=== PATIENT | male | born 1930 | race Caucasian/White ===

== ENCOUNTER 2016-05-02 18:33 | Emergency (ER) | payer MEDICARE ==
[~2016-05-02] VITALS: Ht 162.6 cm; Wt 69.5 kg
[~2016-05-02 18:33] MED LIST: ALBU8.5H2 INHALATION; ATOR10TA66 PO; CHOL100043 PO; DOCU-41 PO; DOXA1TAB2 PO; GABA-500 PO; IRBE300T18 PO; PANT40TA3 PO; PRED5DRO6 BOTH_EYES; SODI15DR6 OP; TIOT18CA3 IH
[2016-05-02 18:37] VITALS: BP 198/91; PULSE 100; RESP 20; O2SAT 96
--- NOTE | 2016-05-02 19:34 | DRSVH ---
PROCEDURE: CT BRAIN WITHOUT CONTRAST ([id number]) INDICATIONS: SEPULVEDA TECHNIQUE: Noncontrast 4.5 mm thick angled axial sections acquired from the foramen magnum to the vertex, with c oronal reformats. COMPARISON: [facility], MR, MR HEAD WO/W CONTRAST AND MRA HEAD AND MRA NECK WO/W CONTRA ST, 04/17/2016, 5:20 PM. [facility], CT, CT HEAD WO CONTRAST, 04/17/2016, 5:[address] [facility], CT, CT BRAIN WO CON, 11/26/2014, 2:30. FINDINGS: Image quality: Excellent. CSF spaces: Basal cisterns are patent. No extra-axial fluid collections. The ventricles are symmet una in size and shape. 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 No intracranial bleeds or masses. There is cerebral volume loss for age, with resultant ventricular and sulcal prominence. There are periventricular and deep white matter chronic small vessel ischemic changes. There is intracranial internal carotid art marivel atherosclerosis. Skull and face: Calvarium and visualized facial bones appear intact, without suspicious lesions. Sinuses: Visualized sinuses are clear. Partial opacification of right mastoids is unchanged. IMPRESSION: 1. No acute intracranial abnormalities. 2. 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 3. Cerebral volume loss and chronic microvascular ischemic changes. 4. Partial opacification of right mastoids appears unchanged. Recommend clinical correlation for mast oiditis. Dictated by: Pretty Renee M.D. on 05/02/2016 at 19:28 Approved by: Pretty Renee M.D. on 05/02/2016 at 19:31
--- NOTE | 2016-05-02 19:44 | ED.REPORT ---
HPI-General Illness Date of Service May 02, 2016 ED Provider: Ruddy Mayers MD The patient is a 85 year old male w/ a hx of CAD, COPD, HTN who presents to the ED accompanied by his due to head pressure for the past 2 weeks. He went to earlier today and was referred here due to high blood pressure. Associated symptoms include diarrhea and shallow breathing. Denies chest pain, SOB, nausea, vomiting, abdominal pain. Dr. Man is his primary care physician. Nursing Notes Stated Complaint: SENT BY AGENCY Chief Complaint: General Complaint Nursing Notes Reviewed: Yes Allergies: Coded Allergies: tetracycline (Verified Allergy, Severe, nausea, heart palpitation, 05/02/16 ) lorazepam (Verified Allergy, Unknown, 05/02/16) Scheduled Albuterol HFA (Proair HFA) 8.5 Gm Hfa.aer.ad 2 PUFFS INHALATION Q4H prn for shortness of breath Atorvastatin Calcium (Atorvastatin Calcium) 10 Mg Tablet 10 MG PO DAILY Cholecalciferol (Vitamin D3) (Vitamin D) 1,000 Unit Tablet 5,000 UNIT PO DAILY Doxazosin Mesylate (Doxazosin Mesylate) 1 Mg Tablet 1 MG PO DAILY Gabapentin (Gabapentin) 100 Mg Capsule 100 MG PO TID Irbesartan (Irbesartan) 300 Mg Tablet 300 MG PO DAILY Pantoprazole DR (Pantoprazole DR) 40 Mg Tablet.dr 40 MG PO DAILY Prednisolone Acetate (Prednisolone Acetate) 5 Ml Drops.susp 1 DRP BOTH_EYES DAILY Sodium Chloride (Aleksandr-128) 15 Ml Drops 15 ML OP BID Tiotropium [place] (Spiriva) 18 Mcg Cap.w.dev 18 MCG IH DAILY Scheduled PRN Docusate Sodium (Colace) 100 Mg Capsule 100 MG PO DAILY PRN PRN For Constipation General Time Seen by MD: 19:36 Chief Complaint Headache Hx Obtained From: Patient Arrived By: Walk-in Sudden in Onset?: Yes Onset Occurred: More than a week ago... (2 weeks) Symptom Duration: Since onset Location: : Head Radiation: : Does not radiate Severity: Current: Mild Recent Healthcare: Recent doctor visit Similar Sx Previous: Yes Past Medical History Past Medical History Notes: Dicharge diagnoses 10/28/14: 1. Sepsis syndrome 2. Pneumonia, likely community acquired with possible contribution from slight aspiration 3. Acute renal failure , resolved (likely secondary to sepsis) 4. Chronic kidney disease, stage 2 5. COPD 6. Hyponatremia secondary to volume depletion 7. Acute encephalopathy secondary to sepsis, resolved Secondary diagnoses: Hypertension CAD/PVD BPH Peripheral neuropathy Past Medical History Brain aneurysm Reports: COPD, Coronary artery disease, Hypertension Reports: Renal failure Past Surgical History Cataracts surgery BLE stents Smoking History Current Every Day Smoker Social History Alcohol Use: Denies alcohol use Drug Use: Denies drug use Other Social History: Smokeless tobacco, Good social support, Ambulatory Status Independent Review of Systems no jaw claudication Full Review of Systems Respiratory: Denies: Shortness of breath Cardiovascular: Denies: Chest pain GI: Denies: Abdominal pain, Nausea, Vomiting Neurologic: Reports: Headache Complete sys rev & neg: except as marked. 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 ambulatory with a steady gait tandum walk Vital Signs Vital Signs Date Time Temp Pulse Resp B/P Pulse Ox O2 Delivery O2 Flow Rate FiO2 05/02/16 20:50 77 15 165/78 96 Room Air 05/02/16 20:35 36.8 87 18 178/80 98 Room Air 05/02/16 18:37 36.6 100 20 198/91 96 Initial VS: Reviewed Neck: Supple, Non-tender, Full range of motion Respiratory: Breath sounds normal, Clear to auscultation, No respiratory distress Abdomen / GI: Soft, Non-tender, No guarding, No rebound, No distention Extremities: Vascular intact, Neuro intact, No swelling, No tenderness Skin: Warm, Dry, No cyanosis Psychiatric: Mood/affect normal, Behavior normal, Normal thought content General/Constitutional: Awake, Alert, No acute distress, Cooperative Head / Eyes: Normocephalic right pupil is abnormal scalp is nontender temporal artery is nontender w/out beating no tenderness to facial percussion Cardiovascular: Heart rate NL, Regular rhythm, Heart sounds NL no carotid brewery Interpretation & Diagnostics Lab Results Interpretation Test 05/02/16 19:41 05/02/16 19:50 Hold Purple Top Tube Received (Received) Hold Blue Top Tube Received (Received) Hold [place] Top Tube Received (Received) Hold [place] Top Tube Received (Received) Hold Urine Received (Received) CT Head Interpretation IMPRESSION: 1. No acute intracranial abnormalities. 2. 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 3. Cerebral volume loss and chronic microvascular ischemic changes. 4. Partial opacification of right mastoids appears unchanged. Recommend clinical correlation for mastoiditis. Dictated by: Pretty Renee M.D. on 05/02/2016 at 19:28 Approved by: Pretty Renee M.D. on 05/02/2016 at 19:31 Study: Head CT no contrast Interpretation / Wet Read by: Interpret - Radiologist Re-Eval/Medical Decision Med Decision/Clinical Course chief complaint of head pressure. pt anxious re ICH, this is not seen on CT today. BP is elevated, not to the extent I would expect acute symptoms. given nature of complaint that is not clearly associated with cardiac or infectious illness, will not pursue these further. advised them to follow up with PMD regarding BP Counseled Regarding: Diagnosis, Lab results, Need for follow-up, When/why to return to ED Discharge & Departure Primary Impression: Head ache Headache type: unspecified Headache chronicity pattern: unspecified pattern Intractability: not intractable Qualified Code: R51 - Headache Disposition: Home Discharge Condition All VS Reviewed: Yes Condition: Stable Additional Instructions: Emergency Department evaluation included interview, examination, labs, ECG, and head CT. There are no dangerous causes for your symptoms. BP is elevated but not severely so. Continue previous home medications. Your head CT is without acute findins, there is no evidence of bleeding. Follow up with your primary care physician as needed. Follow blood pressures at home, check once daily, bring this ifo to Dr Man for follow up. Return to the Emergency Department for any new or worsening symptoms. Referrals: Tia Man MD (PCP) Scribe Attestation Portion of this note were transcribed by Jackie Espinal. I, Dr. Mayers, personally performed the history, physical exam, and medical decision-making: I reviewed and confirmed the accuracy for the information in the transcribed note. Signed by: tyler Pandey, 05/02/16 2200 copies to: Tia Man MD, Donald L MD May 02, 2016 19:44 Jackie Espinal May 02, 2016 19:57
[2016-05-02 20:35] VITALS: BP 178/80; PULSE 87; RESP 18; O2SAT 98
[2016-05-02 20:50] VITALS: BP 165/78; PULSE 77; RESP 15; O2SAT 96
== END 2016-05-02 20:45 | disposition home or self-care (01) ==
LOC: SED 18:33
DX: R51 Headache (principal); R19.7 Diarrhea, unspecified; R06.89 Other abnormalities of breathing; I13.10 Hypertensive heart and chronic kidney disease without heart failure, with stage 1 through stage 4 chronic kidney disease, or unspecified chronic kidney disease; N18.2 Chronic kidney disease, stage 2 (mild); I25.10 Atherosclerotic heart disease of native coronary artery without angina pectoris; J44.9 Chronic obstructive pulmonary disease, unspecified; F17.200 Nicotine dependence, unspecified, uncomplicated; Z88.1 Allergy status to other antibiotic agents; Z88.5 Allergy status to narcotic agent; Z88.8 Allergy status to other drugs, medicaments and biological substances

== ENCOUNTER 2016-11-12 18:21 | Emergency (ER) | payer MEDICARE ==
[~2016-11-12] VITALS: Ht 162.6 cm; Wt 66.8 kg
[2016-11-12 18:26] VITALS: BP 161/55; PULSE 82; RESP 16; O2SAT 94
--- NOTE | 2016-11-12 19:15 | ED.REPORT ---
HPI-Trauma Minor / Fall Date of Service Nov 12, 2016 ED Provider: Mayo Ureña DO Pt is a 85 year old male with a history of HTN and COPD who presents to the ED after a GLF at 16:30 today. He c/o associated left sided facial pain, dizziness , left sided chest wall pain, and "pressure behind the eye." He denies LOC and VT. Nursing Notes Stated Complaint: FELL AND HIT HEAD Chief Complaint: Multiple Trauma/Fall Nursing Notes Reviewed: Yes Allergies: Coded Allergies: tetracycline (Verified Allergy, Severe, nausea, heart palpitation, 11/12/16 ) lorazepam (Verified Allergy, Unknown, 11/12/16) Scheduled Albuterol HFA (Proair HFA) 8.5 Gm Hfa.aer.ad 2 PUFFS INHALATION Q4H prn for shortness of breath Atorvastatin Calcium (Atorvastatin Calcium) 10 Mg Tablet 10 MG PO DAILY Cholecalciferol (Vitamin D3) (Vitamin D) 1,000 Unit Tablet 5,000 UNIT PO DAILY Doxazosin Mesylate (Doxazosin Mesylate) 1 Mg Tablet 1 MG PO DAILY Gabapentin (Gabapentin) 100 Mg Capsule 100 MG PO TID Irbesartan (Irbesartan) 300 Mg Tablet 300 MG PO DAILY Pantoprazole DR (Pantoprazole DR) 40 Mg Tablet.dr 40 MG PO DAILY Prednisolone Acetate (Prednisolone Acetate) 5 Ml Drops.susp 1 DRP BOTH_EYES DAILY Sodium Chloride (Aleksandr-128) 15 Ml Drops 15 ML OP BID Tiotropium [place] (Spiriva) 18 Mcg Cap.w.dev 18 MCG IH DAILY Scheduled PRN Docusate Sodium (Colace) 100 Mg Capsule 100 MG PO DAILY PRN PRN For Constipation General Time Seen by MD: 19:15 Chief Complaint Fall Hx Obtained From: Patient Arrived By: Walk-in Onset Occurred: 5 - 8 hours ago Symptom Duration: Since onset Location: Chest Face Quality: Painful Severity: Current: Moderate Severity: Maximum: Moderate Recent Healthcare: No recent doctor visit, No recent hospitalization Similar Sx Previous: No Past Medical History Past Medical History Notes: Dicharge diagnoses 10/28/14: 1. Sepsis syndrome 2. Pneumonia, likely community acquired with possible contribution from slight aspiration 3. Acute renal failure , resolved (likely secondary to sepsis) 4. Chronic kidney disease, stage 2 5. COPD 6. Hyponatremia secondary to volume depletion 7. Acute encephalopathy secondary to sepsis, resolved Secondary diagnoses: Hypertension CAD/PVD BPH Peripheral neuropathy Past Medical History Brain aneurysm Reports: COPD, Coronary artery disease, Hypertension Reports: Renal failure Past Surgical History Cataracts surgery BLE stents Smoking History Current Every Day Smoker Social History Alcohol Use: Denies alcohol use Drug Use: Denies drug use Other Social History: Smokeless tobacco, Good social support, Ambulatory Status Independent Review of Systems + left sided facial pain + left sided chest wall pain + pressure behind left eye Denies VT Constitutional: Denies: Chills, Fever, Lethargy Eyes: Denies: Blurred left, Blurred right Respiratory: Denies: Dyspnea on exertion, Hemoptysis, Pleuritic pain Musculoskeletal: Denies: Neck pain Neurologic: Denies: Change LOC, Dizziness, Headache, Slurred speech Complete sys rev & neg: except as marked. Physical Exam Initial Vital Signs Vital Signs (First) Date Time Temp Pulse Resp B/P Pulse Ox O2 Delivery O2 Flow Rate FiO2 11/12/16 18:26 36.6 82 16 161/55 94 Room Air Initial VS: Reviewed Cardiovascular: Regular rate & rhythm, Heart sounds normal, Intact distal pulses Abdomen / GI: Soft, Non-tender Extremities: Vascular intact, Neuro intact Skin: Warm, Dry, No cyanosis Neurologic: Alert, Oriented, Nonfocal Psychiatric: Mood/affect normal, Behavior normal General/Constitutional: Awake, Alert Neck: Atraumatic, Full range of motion Head / Eyes: Normocephalic, PERRL, No nystagmus, No periorbital redness, No periorbital swelling, No photophobia, No scleral icterus, Conjunctiva NL, Cornea clear, Eyelids NL, Fundi NL, Visual acuity NL HEAD: Facial swelling Respiratory / Chest: Breath sounds NL, Breath sounds = bilat Tender chest wall Interpretation & Diagnostics X-Ray Chest Interpretation Chest Xray Interpretation: IMPRESSION: No acute pulmonary process. Lateral left 11th rib fracture. Dictated by: Yisel Mc M.D. on 11/12/2016 at 20:12 View: AP & lat Interpretation / Wet Read by: Interpret - Radiologist X-Ray Interpretation Xray Interpretation: IMPRESSION: Lateral left 11th rib fracture. Dictated by: Yisel Mc M.D. on 11/12/2016 at 20:13 Study Performed: Left rib, 2 view Interpretation / Wet Read by: Interpret - Radiologist CT Head Interpretation IMPRESSION: 1. No acute intracranial process. 2. Moderate atrophy and chronic microvascular ischemic changes. Dictated by: Yisel Mc M.D. on 11/12/2016 at 20:27 Study: Head CT no contrast Interpretation / Wet Read by: Interpret - Radiologist Re-Eval/Medical Decision Med Decision/Clinical Course Very pleasant 85-year-old male tripped and fell. He struck the left side of his chest on the ground and also hit the left side of his face. He presents now with facial pain, very mild headache and chest wall pain. He takes aspirin and he is [address] head was scanned. No hemorrhage. No skull fracture. X- rays of his chest showed none displaced left 11th rib fracture. We will treat symptomatically with acetaminophen as directed. No signs of pneumothorax. Recommend close outpatient follow-up. GCS of 15. No sensory or motor or cerebellar deficits. Source of Hx: Old records Re-Evaluation/Progress #1: Time of Eval: 19:24 Re-Evaluation/Progress Note: Informed pt of concussion and contusion, but also plan for x-ray and CT due to the risks of hemorrhage in brain at his age. Pt understands and agrees with plan. All questions addressed. Re-Evaluation/Progress #2: Time of Eval: 20:30 Re-Evaluation/Progress Note: Informed pt of plan for discharge. Discussed normal CT and evidence of rib fracture on x-ray. Pt understands and agrees with plan for discharge. F/U instructions and RTER warnings given. All questions addressed.Pt rechecked. Counseled Regarding: Diagnosis, Need for follow-up, When/why to return to ED Discharge & Departure Impression: Primary Impression: Rib fracture Encounter type: initial encounter Rib fracture type: single rib Fracture type: closed Laterality: left Qualified Code: S22.32XA - Fracture of one rib, left side, initial encounter for closed fracture Additional Impression: Head injury due to trauma Encounter type: initial encounter Qualified Code: S09.90XA - Unspecified injury of head, initial encounter Disposition: Home Discharge Condition All VS Reviewed: Yes Condition: Stable Patient Instructions: Head Injury (ED), Rib Fracture (ED) Additional Instructions: Take Tylenol as directed for the pain. Your head scan was normal. Call your primary care provider tomorrow for a follow up appointment next week. Return to the Emergency Department for any new or concerning symptoms such as increasing symptoms or SOB. Referrals: Tia Man MD (PCP) Scribe Attestation Portions of this note were transcribed by Cyndee Schuster. I, Dr. Ureña personally performed the history, physical exam and medical decision-making; I reviewed and confirmed the accuracy of the information in the transcribed note. Signed by : Alexis Le, 11/12/16. copies to: Tia Man MD, Todd P DO Nov 12, 2016 19:15 Cyndee Valencia Nov 12, 2016 19:28
--- NOTE | 2016-11-12 20:15 | DRSVH ---
PROCEDURE: X-RAY CHEST, TWO VIEWS ([id number]) INDICATIONS: fall chest injury TECHNIQUE: 2 views of the chest were acquired. COMPARISON: [facility], CR, XR CHEST 2VW, 06/18/2015, 16:28. [facility], CR , XR RIBS UNILAT 2VW LT, 11/12/2016, 19:51. FINDINGS: Surgical changes and devices: None. Lungs and pleura: No pleural effusions or pneumothorax. Lungs are clear. Mediastinum: Mediastinal contours are normal. Heart size is normal. Bones and chest wall: No suspicious bony abnormalities. Soft tissues appear unremarkable. There is a lateral left 11th rib fracture. IMPRESSION: No acute pulmonary process. Lateral left 11th rib fracture. Dictated by: Yisel Mc M.D. on 11/12/2016 at 20:12 Approved by: Yisel Mc M.D. on 11/12/2016 at 20:13
--- NOTE | 2016-11-12 20:16 | DRSVH ---
PROCEDURE: X-RAY LEFT RIBS, TWO VIEWS ([id number]) INDICATIONS: fall chest injury TECHNIQUE: 3 views of the left ribs were acquired. COMPARISON: None. FINDINGS: Surgical changes and devices: None. Bones and chest wall: Lateral left 11th rib fracture. No suspicious bony lesions. Overlying soft tis sues appear unremarkable. Lungs and pleura: The visualized lung appears clear. No pleural effusions or pneumothorax are visib le. IMPRESSION: Lateral left 11th rib fracture. Dictated by: Yisel Mc M.D. on 11/12/2016 at 20:13 Approved by: Yisel Mc M.D. on 11/12/2016 at 20:14
--- NOTE | 2016-11-12 20:31 | DRSVH ---
PROCEDURE: CT BRAIN WITHOUT CONTRAST ([id number]) INDICATIONS: fall head injury TECHNIQUE: Noncontrast 4.5 mm thick angled axial sections acquired from the foramen magnum to the vertex, with c oronal reformats. COMPARISON: [facility], CT, CT BRAIN WO CON, 05/02/2016, 19:13. FINDINGS: Image quality: Excellent. CSF spaces: Basal cisterns are patent. No extra-axial fluid collections. The ventricles are symmet una in size and shape. Brain: No intracranial bleeds or masses. There is cerebral volume loss for age, with resultant vent ricular and sulcal prominence. There are periventricular and deep white matter chronic small vessel ischemic changes. There is intracranial internal carotid artery atherosclerosis. Old left temporal encephalomalacia consistent with previous infarction. A dot area. Skull and face: Calvarium and visualized facial bones appear intact, without suspicious lesions. Sinuses: Visualized sinuses and mastoids are clear. IMPRESSION: 1. No acute intracranial process. 2. Moderate atrophy and chronic microvascular ischemic changes. Dictated by: Yisel Mc M.D. on 11/12/2016 at 20:27 Approved by: Yisel Mc M.D. on 11/12/2016 at 20:29
[2016-11-12 20:42] VITALS: BP 149/57; PULSE 79; RESP 16; O2SAT 95
== END 2016-11-12 20:44 | disposition home or self-care (01) ==
LOC: SED 18:21
DX: S22.32XA Fracture of one rib, left side, initial encounter for closed fracture (principal); S09.8XXA Other specified injuries of head, initial encounter; W01.198A Fall on same level from slipping, tripping and stumbling with subsequent striking against other object, initial encounter; Y93.89 Activity, other specified; Y92.89 Other specified places as the place of occurrence of the external cause; Y99.8 Other external cause status; R07.89 Other chest pain; R42 Dizziness and giddiness; H57.9 Unspecified disorder of eye and adnexa; I13.10 Hypertensive heart and chronic kidney disease without heart failure, with stage 1 through stage 4 chronic kidney disease, or unspecified chronic kidney disease; I25.10 Atherosclerotic heart disease of native coronary artery without angina pectoris; N18.2 Chronic kidney disease, stage 2 (mild); J44.9 Chronic obstructive pulmonary disease, unspecified; F17.200 Nicotine dependence, unspecified, uncomplicated; Z87.01 Personal history of pneumonia (recurrent); Z98.890 Other specified postprocedural states; Z88.1 Allergy status to other antibiotic agents; Z88.8 Allergy status to other drugs, medicaments and biological substances